=== PATIENT | female | born 1965 | race Caucasian/White ===

== ENCOUNTER → 2020-05-16 12:13 | Outpatient (CLI) | payer BC, SELFPAY | PROVIDERS: Referring Provider Family Medicine; Visit Provider Family Medicine | DX: R68.83 Chills (without fever) (principal) | CPT/HCPCS: 87635; G2023; U0003 ==

== ENCOUNTER 2024-06-18 14:32 | Emergency (ER) | payer OTHER, SELFPAY ==
[2024-06-18 14:33] VITALS: BP 130/68; PULSE 95; RESP 17; TEMP 36.2; O2SAT 98; BMI 27.8
[2024-06-18 16:33] VITALS: BP 112/66; PULSE 80; RESP 16; O2SAT 99
--- NOTE | 2024-06-18 17:43 | EX.ED.DYSGE1 ---
HPI History of Present Illness Chief Complaint: Constipation Informant: patient Onset/Context/Timing Onset: Days (5) Context: Gradual Onset Timing: Continuous Quality: Pressure Location: Rectum and lower abdomen Worsened by: Standing Relieved by: Nothing Narrative Narrative: Patient presents with constipation and lower abdominal pain that has been getting worse over the past 5 days. Patient states she has not had a bowel movement in the last 5 days. Patient admits to some pressure over her rectum and lower abdomen. Patient states it is worse with standing. Patient states nothing makes it better. Patient denies any fevers or chills. Patient denies any nausea or vomiting. Patient dates the pain does radiate into her back. Patient also admits to mild headache. Patient denies any urinary complaints. Patient denies any fevers or chills. [facility] Medical History (Updated 06/18/24 @ 20:[address] Sly Burgess DO) Colitis Rheumatic fever Murmur Lyme disease Rheumatoid arthritis Allergy/AdvReac Type Severity Reaction Status Date / Time No Known Allergies Allergy Verified 06/18/24 14:33 Surgical History Hx of tonsillectomy Social History Smoking Status: Never smoker ROS ROS ED Constitutional Constitutional ED: Denies chills or fever(s) Eyes Eyes: Denies blurry vision or change in vision ENT ENT ED: Denies rhinorrhea or sore throat Cardiovascular Cardiovascular: Denies chest pain or palpitations Respiratory/Chest Respiratory/Chest: Denies cough or dyspnea Gastrointestinal Gastrointestinal: Reports abdominal pain and constipation; Denies nausea or vomiting Genitourinary Genitourinary ED: Denies dysuria or hematuria Musculoskeletal Musculoskeletal: Reports back pain; Denies neck pain Integumentary Denies abscess or rash Neurologic Neurologic: Reports headache(s); Denies weakness Allergic/Immunologic Allergic/Immunologic ED: Denies mouth swelling or urticaria EXAM Physical Exam Const Vital Signs: 06/18/24 14:33 06/18/24 16:33 06/18/24 18:00 Temperature 97.2 F L Temperature Source Temporal Pulse Rate 95 80 88 Respiratory Rate 17 16 16 Blood Pressure 130/68 H 112/66 133/80 H Blood Pressure Mean 88 81 97 Pulse Ox 98 99 96 Oxygen Delivery Method Room Air Room Air Room Air Positive well nourished and well developed General Appearance ED: well developed and NAD HEENT Reports moist mucous membranes Neck supple and no JVD Resp normal respiratory effort and clear to auscultation bilaterally Cardio regular rate and regular rhythm GI non-distended Palpation: soft and tender LLQ and suprapubic; Negative for guarding or rebound tenderness present Neuro oriented x3, CN's II-XII intact bilaterally and no sensory deficits noted Sensorium / Orientation: alert Motor Exam: strength 5/5 throughout Psych mental status grossly normal MDM MDM MDM Narrative Medical decision making narrative: Differential diagnosis includes bowel obstruction, perforation, and constipation. Acute abdominal x-rays will be obtained to assess for bowel obstruction and perforation. Radiography Diagnostic Testing: Clinical Impression(s) from Imaging Studies Acute Abdomen Series 06/18/24 17:50 IMPRESSION: No acute cardiopulmonary disease. Extensive colonic fecal retention consistent with clinical constipation. Electronically Signed: Hussein Butler MD at 18:30 EDT , Acute abdominal x-rays were obtained. There are 4 views. On my independent interpretation, there is a large amount of stool throughout the colon. There is no evidence of obstruction or perforation. Radiologist also interpreted the x-rays and agrees. Treatment and Re-Evaluation :: Patient was advised of her findings. Patient was given a soapsuds enema. Patient felt better after this. Patient states he still felt some pressure in her perineal area. Patient was instructed to continue taking laxatives as needed. Patient was instructed to follow-up with her primary care physician in 5 to 7 days. Patient was also instructed to follow-up with her [employer] in 5 to 7 days. Patient understood and was agreeable with the plan. All questions were answered. Discharge Plan Triage Chief Complaint: Constipation ED Provider: Sly Burgess Dx/Rx/DC Orders Clinical Impression: Constipation, Pelvic pain Instructions: ED Constipation (Adult) Primary Care Provider: Issa Holley Referrals: Issa Holley MD [Primary Care Provider] - 5-7 Days Care Physician,No Primary [Non-Staff] - Print Language: Latvian Disposition Disposition: Home, Self Care
--- NOTE | 2024-06-18 17:50 | RAD_ITS ---
INDICATION: Abdominal pain EXAMINATION/TECHNIQUE: X-RAY - XR Abdomen Series W/ Chest 1 View COMPARISON: None. FINDINGS: --Chest: LINES/DEVICES: None. LUNGS: No consolidation, edema or effusion. No pneumothorax. MEDIASTINUM AND CARDIOVASCULAR STRUCTURES: Cardiac silhouette not enlarged. Central airways and mediastinal contour are unremarkable. BONES AND SOFT TISSUES: No acute findings. --Abdomen: BOWEL GAS PATTERN: Non-obstructive. Extensive colonic fecal retention with moderate rectal distention.. FREE AIR: None visualized. ORGANOMEGALY: Not seen. CALCIFICATIONS: No abnormal calcifications observed. BONES AND SOFT TISSUES: No acute findings. RAD/Acute Abdomen Inc Chest IMPRESSION: No acute cardiopulmonary disease. Extensive colonic fecal retention consistent with clinical constipation. Electronically Signed: Hussein Butler MD at 18:30 EDT ,
[2024-06-18 18:00] VITALS: BP 133/80; PULSE 88; RESP 16; O2SAT 96
[2024-06-18 20:00] VITALS: BP 117/65; PULSE 98; RESP 16; TEMP 36.9; O2SAT 99
== END 2024-06-18 20:06 | disposition home or self-care (01) ==
PROVIDERS: Emergency Provider Emergency Medicine; PCP Family Medicine; Visit Provider Emergency Medicine
DX: K59.00 Constipation, unspecified (principal); R10.2 Pelvic and perineal pain
CPT/HCPCS: 74022; 99284

== ENCOUNTER 2025-03-03 16:17 | Emergency (ER) | payer BC, SELFPAY ==
[2025-03-03 16:18] VITALS: BP 114/61; PULSE 96; RESP 18; TEMP 35.8; O2SAT 100; BMI 24.6
[2025-03-03 16:21] VITALS: BP 114/61; PULSE 96; RESP 18; TEMP 35.8; O2SAT 100
--- NOTE | 2025-03-03 16:59 | EDS_ITS ---
HPI HPI - GI History of Present Illness Chief Complaint: Nausea/Vomiting Informant: patient Abdominal Pain/Flank Pain Onset: Today Context: Sudden Onset Timing: Continuous Quality: Aching Location: Diffuse Worsened by: Nothing Relieved by: Nothing Nausea/Vomiting/Emesis GI Symptom: Positive for Nausea and Vomiting Diarrhea/Melena/Hematochezia GI Symptom: Negative for Diarrhea, Melena or Hematochezia Associated Symptoms Associated Symptoms: Negative for Dysuria, Frequency or Hematuria Narrative Narrative: Patient presents with nausea and vomiting that began today. Patient states it began a few hours prior to arrival. Patient states she has been unable to keep anything down. Patient states she was started on Augmentin today for upper respiratory congestion. Patient states she started having nausea and vomiting shortly after taking her first dose of Augmentin. Patient states her son also was recently sick with nausea and vomiting. Patient denies any hematemesis or coffee-ground emesis. Patient states nothing makes her nausea and vomiting worse and nothing makes it better. Patient does admit to some spinning sensation in her head. Patient states this started after the nausea and vomiting. PFSH PFS Medical History Colitis Rheumatic fever Murmur Lyme disease Rheumatoid arthritis Home Medications ?Medication ?Instructions ?Recorded ?Last Taken ?Type ondansetron 4 mg disintegrating 4 mg PO Q8H PRN PRN Na usea #10 tabs 03/03/25 Unknown Rx tablet Allergy/AdvReac Type Severity Reaction Status Date / Time No Known Allergies Allergy Verified 03/03/25 16:18 Surgical History Hx of tonsillectomy Social History Smoking Status: Never smoker ROS ROS ED Constitutional Constitutional ED: Denies chills or fever(s) Eyes Eyes: Denies blurry vision or change in vision ENT ENT ED: Reports rhinorrhea; Denies sore throat Cardiovascular Cardiovascular: Denies chest pain or palpitations Respiratory/Chest Respiratory/Chest: Reports cough; Denies dyspnea Gastrointestinal Gastrointestinal: Reports nausea and vomiting; Denies abdominal pain, diarrhea or melena Genitourinary Genitourinary ED: Denies dysuria or hematuria Musculoskeletal Musculoskeletal: Denies back pain or neck pain Integumentary Denies abscess or rash Neurologic Neurologic: Denies headache(s) or weakness Allergic/Immunologic Allergic/Immunologic ED: Denies mouth swelling or urticaria EXAM Physical Exam Const Vital Signs: 03/03/25 16:18 03/03/25 16:21 03/03/25 17:21 Temperature 96.4 F L 96.4 F L 97.4 F L Temperature Source Temporal Temporal Oral Pulse Rate 96 96 83 Respiratory Rate 18 18 16 Blood Pressure 114/61 114/61 115/67 Blood Pressure Mean 78 78 83 Pulse Ox 100 100 98 Oxygen Delivery Method Room Air Room Air Room Air 03/03/25 18:48 Temperature Temperature Source Pulse Rate 80 Respiratory Rate 12 Blood Pressure 125/81 H Blood Pressure Mean 95 Pulse Ox 98 Oxygen Delivery Method Room Air Positive well nourished and well developed General Appearance ED: well developed and NAD HEENT Reports moist mucous membranes Neck supple and no JVD Resp normal respiratory effort and clear to auscultation bilaterally Cardio regular rate and regular rhythm GI non-distended Palpation: soft and tender epigastric, LLQ, RLQ, LUQ, RUQ, periumbilical and suprapubic; Negative for guarding or rebound tenderness present Extremity full ROM Neuro CN's II-XII intact bilaterally, moves all extremities and no sensory deficits noted Sensorium / Orientation: alert Motor Exam: strength 5/5 throughout Psych mental status grossly normal and thought process normal MDM MDM MDM Narrative Medical decision making narrative: Differential diagnosis includes gastroenteritis, dehydration, electrolyte abnormality, medication side effect, vertigo, and pancreatitis. CBC will assess for leukocytosis and lites here. Comprehensive metabolic profile will be obtained to assess for hepatic function, renal function, and electrolyte abnormality. Lipase will be obtained to assess for pancreatitis. Urinalysis will be obtained to assess for urinary tract infection and hematuria. Lab Data Attestation: I reviewed the patient's lab results. Lab results narrative: CBC with reviewed with within normal limits. Comprehensive metabolic profile was reviewed. Glucose was slightly elevated at 139. AST and ALT were both slightly elevated at 43. Lipase was reviewed and was normal at 22. Urinalysis was reviewed. There is no evidence of urinary tract infection or hematuria. Labs: Laboratory Results - last 24 hr 03/03/25 03/03/25 16:45 18:16 WBC 8.1 RBC 5.35 Hgb 15.2 H Hct 46.2 MCV 86.4 MCH 28.4 MCHC 32.9 RDW Std Deviation 44.9 H RDW Coeff of Tyra 14.2 Plt Count 231 MPV 10.1 Immature Gran % (Auto) 0.200 Neut % (Auto) 75.6 H Lymph % (Auto) 17.4 L [place] % (Auto) 6.0 Eos % (Auto) 0.6 Baso % (Auto) 0.2 Absolute Neuts (auto) 6.1 Absolute Lymphs (auto) 1.41 Nucleated RBC % 0 Sodium 144 Potassium 4.0 Chloride 104 Carbon Dioxide 24.9 Anion Gap 15 BUN 14 Creatinine 0.85 Estim Creat Clear Calc 62.17 Est GFR (MDRD) Non-Af 78 BUN/Creatinine Ratio 15.9 Glucose 139 H Calcium 10.4 Total Bilirubin 0.30 AST 43 H ALT 43 H Alkaline Phosphatase 91 Total Protein 8.5 H Albumin 4.8 Globulin 3.7 Albumin/Globulin Ratio 1.3 Lipase 22 Urine Color Yellow Urine Clarity Clear Urine pH 7.0 Ur Specific [place] 1.010 Urine Protein 30 H Urine Glucose (UA) Normal Urine Ketones Negative Urine Occult Blood 10 H Urine Nitrite Negative Urine Bilirubin Negative Urine Urobilinogen Normal Ur Leukocyte Esterase 100 H Urine RBC 0-5 SEEN Urine WBC 0-5 SEEN Ur Squamous Epith Cells 0-5 SEEN Urine Bacteria 2+ Urine Mucus 0 SEEN Treatment and Re-Evaluation :: Patient was given IV fluids, morphine, and Zofran. Patient was feeling better on reevaluation. Patient was advised of her findings. Patient was given a prescription for Zofran. Patient was instructed to start with a liquid diet and advance as tolerated. Patient was instructed to follow-up with her primary care physician in 5 to 7 days. Patient was instructed to return if worse in any way. Patient understood and was agreeable with the plan. All questions were answered. Discharge Plan Triage Chief Complaint: Nausea/Vomiting ED Provider: Sly Burgess Dx/Rx/DC Orders Clinical Impression: Nausea and vomiting, Mild dehydration Instructions: ED Vomiting (Adult) Prescriptions: New ondansetron 4 mg tablet,disintegrating 4 mg PO Q8H PRN PRN (Reason: Nausea) Qty: 10 0RF Primary Care Provider: Issa Holley Referrals: Issa Holley MD [Primary Care Provider] - 5-7 Days Print Language: Greek Disposition Disposition: Home, Self Care Discharge Date/Time: 03/03/25 19:28
[2025-03-03] MEDS: Ondansetron 4 MG/2 ML Vial IV (17:06)
[2025-03-03] MEDS: Morphine 4 MG/ML Syringe IV (17:06)
[2025-03-03] MEDS: 0.9% Normal Saline (1000mL) 1,000 ML 999 ML IV (17:07)
[2025-03-03 17:10] LABS: Absolute Lymphocyte Count 1.41 X10^3/uL (0.83-4.51); Absolute Neutrophil Count 6.1 X10^3/uL (2.0-7.7); Basophil# 0.02 X10^3/uL; Basophil% 0.2 % (0-1); Eosinophil# 0.05 X10^3/uL; Eosinophils% 0.6 % (0-5); Hematocrit 46.2 % (37-47); Hemoglobin 15.2 g/dL (12.0-15.0); Lymphocyte # 1.41 X10^3/ul (0.83-4.51); Lymphocyte % 17.4 % (19-41); Mean Corp Hgb Conc 32.9 g/dL (32-36); Mean Corpuscular Hgb 28.4 pg (27.0-32.0); Mean Corpuscular Volume 86.4 fL (81-99); Mean Platelet Vol. 10.1 fl (6.2-12.0); Monocyte# 0.49 X10^3/uL; NRBC Flagged by Analyzer 0 % (0-5); Neutrophil # 6.13 X10^3/uL (2.7-7.7); Neutrophil % 75.6 % (47-70); POSITIVE MORPHOLOGY YES; Platelet Count 231 K/mm3 (150-450); RBC Distribution Width CV 14.2 % (11.6-14.6); RBC Distribution Width SD 44.9 fl (35.1-43.9); Red Blood Count 5.35 M/mm3 (4.2-5.4); White Blood Count 8.1 K/mm3 (4.4-11.0)
[2025-03-03 17:12] LABS: Differential Indicated SCAN CRITERIA MET
[2025-03-03 17:21] VITALS: BP 115/67; PULSE 83; RESP 16; TEMP 36.3; O2SAT 98
[2025-03-03 17:38] LABS: ALB/GLOB Ratio 1.3 RATIO (0.9-2.4); AST(SGOT) 43 U/L (<=31); Alanine Aminotransfer ALT/SGPT 43 U/L (<=34); Albumin, Serum 4.8 g/dL (3.4-4.8); Alkaline Phosphatase 91 U/L (35-104); Anion Gap 15 (5-15); BUN 14 mg/dL (4-19); BUN/Creat Ratio 15.9 RATIO (10-20); Calcium,Total 10.4 mg/dL (7.6-11.0); Carbon Dioxide 24.9 mmol/L (21.0-32.0); Chloride 104 mmol/L (98-108); Creatinine, Serum 0.85 mg/dL (0.70-1.20); EST Glomerular Filtration Rate 78 (>60); Estimated Creatinine Clearance 62.17 ml/min (50-250); Globulin 3.7 g/dL (2.2-4.2); Glucose 139 mg/dL (70-99); Lipase 22 U/L (13-75); Protein, Total 8.5 g/dL (5.9-8.4); Sodium Level 144 mmol/L (133-145)
[2025-03-03 18:23] LABS: Mucous, Urine 0 SEEN /hpf (<or=2+)
[2025-03-03 18:27] LABS: Color, Urine Yellow (Yellow); Glucose, Dipstick Normal (Normal); Ketone-Dipstick Negative (Negative); Leukocyte Esterase-Dipstick 100 /ul (Negative); Nitrite-Dipstick Negative (Negative); Occult Blood-Urine 10 /ul (Negative); Protein-Dipstick 30 mg/dl (Negative); Urine Bilirubin Dipstick Negative (Negative); Urine Clarity Clear (Clear); Urine Urobilinogen Normal (Normal)
[2025-03-03 18:36] LABS: Bacteria 2+ /hpf (None Seen); Red Blood Cells-Urine 0-5 SEEN /hpf (0-5); Squamous Epithelial Cells - UA 0-5 SEEN /hpf (5-10); White Blood Cells 0-5 SEEN /hpf (0-5)
[2025-03-03 18:48] VITALS: BP 125/81; PULSE 80; RESP 12; O2SAT 98
== END 2025-03-03 19:28 | disposition home or self-care (01) ==
PROVIDERS: Emergency Provider Emergency Medicine; PCP Family Medicine; Visit Provider Emergency Medicine
DX: R11.2 Nausea with vomiting, unspecified (principal); E86.0 Dehydration; R09.81 Nasal congestion
CPT/HCPCS: 80053; 81001; 83690; 85025; 96361; 96374; 96375; 99284; A4216; J2405